=== PATIENT | male | born 2000 | race Caucasian/White ===

== ENCOUNTER → 2019-11-12 14:26 | Outpatient (BNVA) | payer OTHER, SELFPAY | PROVIDERS: Family Provider Electrodiagnostic Medicine; Visit Provider Internal Medicine | DX: Z20.828 Contact with and (suspected) exposure to other viral communicable diseases (principal); J06.9 Acute upper respiratory infection, unspecified | CPT/HCPCS: 87635 ==

== ENCOUNTER 2023-02-16 14:49 | Emergency (ER) | payer OTHER, SELFPAY ==
[2023-02-16 14:55] VITALS: BP 130/83; PULSE 96; RESP 18; TEMP 36.4; O2SAT 98; BMI 22.8
--- NOTE | 2023-02-16 16:08 | ED_ITS ---
HPI - General Adult General: Chief complaint: General Medical Stated complaint: [facility] sent for high bp Time Seen by Provider: 02/16/23 15:48 Source: patient Mode of arrival: ambulatory Limitations: no limitations History of Present Illness: 22-year-old male states he is seen at [facility] for hypertension he states that he believes his meds are causing the blood pressure to be high he is run in the 140s here is 145/91 here. Asymptomatic denies any chest pain or headache. Associated symptoms: Deny chest pain, dyspnea, headache(s), nausea, rash or vomiting Review of Systems Const: Denies: fever(s), chills, body aches or change in appetite ENMT: Denies: throat pain or dental pain Card: Denies: chest pain Resp: Denies: dyspnea GI: Denies: abdominal pain, nausea, vomiting or diarrhea Musc: Denies: neck pain or back pain Skin/Breast: Denies: rash Neuro: Denies: headache(s) Physical Exam Const: COMMON NORMALS: no acute distress, patient oriented x3 and healthy appearing HENMT: COMMON NORMALS: normocephalic and atraumatic HEAD & SCALP: normocephalic and atraumatic Neck/C-Spine: COMMON NORMALS: full ROM and supple Chest: COMMONS NORMALS: normal inspection of the chest Resp: COMMON NORMALS: normal respiratory effort Cardio: COMMON NORMALS: regular rate, regular rhythm and No murmurs present (Cardio) RATE: regular rate RHYTHM: regular rhythm Extremity: COMMON NORMALS: normal to inspection and full ROM Neuro: COMMON NORMALS: patient oriented x3, moves all extremities and no focal motor deficits Psych: COMMON NORMALS: mental status grossly normal, Normal thought process present and cooperative THOUGHT PROCESS: Normal thought process present Skin: COMMON NORMALS: no rashes or lesions noted and no wounds GENERAL SKIN EXAM: no rashes or lesions noted Course Vital Signs: Vital signs: Vital Signs Temperature 97.6 F 02/16/23 14:55 Pulse Rate 96 02/16/23 14:55 Respiratory Rate 18 02/16/23 14:55 Blood Pressure 130/83 02/16/23 14:55 Pulse Oximetry 98 02/16/23 14:55 Oxygen Delivery Me thod Room Air 02/16/23 14:55 [facility] - General Adult Medical Decision Making Patient presents here with hypertension he is asymptomatic we will start him on a low-dose Norvasc he is follow-up with PCP and return if worsening. No radiology studies performed this visit Discharge Plan Discharge Patient Disposition: Home Clinical Impression: Hypertension Condition: Stable Prescriptions: New amlodipine [Norvasc] 5 mg tablet 5 mg PO DAILY Qty: 30 0RF Discharge Orders: Discharge ED (Routine); Ordered 02/16/23 Ordered By: Reba Adrian Discharge Diet: Advance as tolerated Discharge Activity: Resume usual activity Patient Instructions: Hypertension (ED) Coding Level of Care Code ED [employer] for Beni Pickens
[2023-02-16 16:25] VITALS: BP 145/91; PULSE 81; O2SAT 90
== END 2023-02-16 16:26 | disposition home or self-care (01) ==
PROVIDERS: Emergency Provider Emergency Medicine
DX: I10 Essential (primary) hypertension (principal)
CPT/HCPCS: 99283